=== PATIENT | female | born 1995 | race Two or more races ===

== ENCOUNTER 2022-09-25 13:59 | Emergency (ER) | payer MEDICAID, OTHER ==
[~2022-09-25] VITALS: Ht 160 cm; Wt 82.0 kg
[2022-09-25 15:46] VITALS: BP 148/87
[2022-09-25] MEDS ORDERED: AZIT1POW PO (17:21)
[2022-09-25] MEDS ORDERED: METH4PAK PO (17:23)
== END 2022-09-25 17:20 | disposition home or self-care (01) ==
LOC: ER 13:59
DX: J20.9 Acute bronchitis, unspecified (principal); Z20.822 Contact with and (suspected) exposure to COVID-19
CPT/HCPCS: 36415; 71046; 87426; 87804

== ENCOUNTER 2024-03-07 18:48 | Emergency (ER) | payer MEDICAID, OTHER ==
[~2024-03-07] VITALS: Ht 157.5 cm; Wt 95.8 kg
[~2024-03-07 18:48] MED LIST: AZIT1POW PO; METH4PAK PO
[2024-03-07 20:33] VITALS: BP 134/51; PULSE 104; RESP 19; TEMP 98.5; O2SAT 98
[2024-03-07] MEDS: ONDANSETRON ODT 4 MG TAB PO ONE (20:35)
[2024-03-07] MEDS: DICYCLOMINE HCL (10MG/ML) 2 ML AMPULE IM ONE (20:36)
[2024-03-07 20:50] LABS: Urine Bacteria None Seen /hpf (None Seen)
[2024-03-07 21:08] LABS: Urine Blood Negative /uL (Negative); Urine Clarity Clear (Clear); Urine Color Yellow (Yellow); Urine Mucus FEW (None Seen); Urine Protein, UAD 1+ (Negative); Urine Urobilinogen 2 mg/dL (Negative); Urine WBC 2 /hpf (0 - 5)
[2024-03-07 21:16] LABS: Basophils # (auto) 0 10 ^3/uL (0-0.2); Basophils % (auto) 0.3 % (0.0-2.0); Eosinophils # (auto) 0.1 10 ^3/uL (0-0.8); Eosinophils % (auto) 0.6 % (0.0-7.0); Hematocrit 44.3 % (36.0-46.0); Hemoglobin 14.9 g/dL (12.2-16.2); Lymphocytes # (auto) 1.5 10 ^3/uL (0.4-5.4); Lymphocytes % (auto) 15.3 % (10.0-50.0); Mean Corpuscular Hemoglobin 26.9 pg (28.0-32.0); Mean Corpuscular Hgb Conc. 33.6 g/dL (32.0-36.0); Mean Corpuscular Volume 79.9 fL (80.0-100.0); Monocytes # (auto) 0.5 10 ^3/uL (0-1.3); Monocytes % (auto) 5.7 % (0.0-12.0); Neutrophils # (auto) 7.5 10 ^3/uL (1.6-8.6); Neutrophils % (auto) 78.1 % (37.0-80.0); Nucleated Red Blood Cells % 0.9 %; Red Blood Cells 5.54 10^6/uL (4.0-5.20); Red Cell Distribution Width 15.7 % (11.8-14.3); White Blood Cell 9.6 10^3/uL (4.4-10.8)
[2024-03-07 21:38] LABS: Alanine Aminotransferase 65 U/L (7-40); Albumin 4.5 g/dL (3.2-4.8); Alkaline Phosphatase 85 U/L (46-116); Anion Gap 8 (5-15); Aspartate Aminotransferase 28 U/L (13-40); BUN/Creatinine Ratio 9.4 (10.0-20.0); Bilirubin, Total 0.6 mg/dL (0.2-1.0); Blood Urea Nitrogen 6 mg/dL (9-23); Calcium 10.1 mg/dL (8.5-10.1); Carbon Dioxide 25 mmol/L (20-30); Chloride 105 mmol/L (98-107); Glucose 113 mg/dL (74-106); Potassium 3.4 mmol/L (3.5-5.1); Sodium 138 mmol/L (136-145); Total Protein 7.1 g/dL (5.7-8.2)
[2024-03-07 21:58] LABS: Lipase 54 U/L (12-53)
[2024-03-07] MEDS ORDERED: DICY10CA PO (22:12)
[2024-03-07] MEDS ORDERED: NITR-87 PO (22:12)
[2024-03-07] MEDS ORDERED: ZOFR4T PO (22:12)
[2024-03-07] MEDS: NITROFURANTOIN 100 mg CAP PO ONE (22:19)
== END 2024-03-07 22:21 | disposition home or self-care (01) ==
LOC: ER 18:48
DX: N39.0 Urinary tract infection, site not specified (principal); R42 Dizziness and giddiness
CPT/HCPCS: 36415; 80053; 81001; 83690; 85025; 96372; 99283; J0500; Q0162